=== PATIENT | male | born 1945 | race Caucasian/White ===

== ENCOUNTER 2022-03-15 10:32 | Emergency (ER) | payer MEDICARE, BC ==
[~2022-03-15] VITALS: Ht 177.8 cm; Wt 108.9 kg
[2022-03-15] MEDS ORDERED: Buspirone HCl15 MG PO (11:22)
[2022-03-15] MEDS ORDERED: ATOR10 PO (11:22)
[2022-03-15] MEDS ORDERED: AMLO5 PO (11:22)
[2022-03-15] MEDS ORDERED: ELIQUIS5 M2 PO (11:23)
[2022-03-15] MEDS ORDERED: DULO60 PO (11:23)
[2022-03-15] MEDS ORDERED: METO50ER PO (11:24)
[2022-03-15] MEDS ORDERED: FLUT1DIS5 INH (11:24)
[2022-03-15] MEDS ORDERED: ALPR.5 (11:25)
[2022-03-15] MEDS ORDERED: OMEP20ER PO (11:25)
[2022-03-15] MEDS ORDERED: TAMS.4ER PO (11:25)
[2022-03-15] MEDS ORDERED: CAPSAICIN60 G1 TOP (11:26)
[2022-03-15] MEDS ORDERED: FURO20 PO (11:26)
[2022-03-15] MEDS ORDERED: ACET500 PO (11:26)
[2022-03-15] MEDS ORDERED: LIDO700A20 TOP (11:27)
[2022-03-15] MEDS ORDERED: VITAMIN D325 MC3 PO (11:27)
[2022-03-15] MEDS ORDERED: DICLOFENAC SOD100 G1 (11:27)
[2022-03-15] MEDS ORDERED: FOLI1 PO (11:28)
[2022-03-15] MEDS ORDERED: MULVITA (11:28)
[2022-03-15] MEDS ORDERED: B-1100 M1 PO (11:28)
[2022-03-15] MEDS ORDERED: MAGNESIUM OXID500 MG PO (11:28)
[2022-03-15] MEDS ORDERED: EUCERIN ORIGIN250 ML (11:29)
[2022-03-15] MEDS ORDERED: HYDROCODONE-AC1 EA10 (11:30)
== END 2022-03-15 15:15 | disposition home or self-care (01) ==
LOC: ER 10:32
DX: T84.028A Dislocation of other internal joint prosthesis, initial encounter (principal); Z96.612 Presence of left artificial shoulder joint; Y79.2 Prosthetic and other implants, materials and accessory orthopedic devices associated with adverse incidents; Z88.8 Allergy status to other drugs, medicaments and biological substances; Z79.899 Other long term (current) drug therapy; Z79.1 Long term (current) use of non-steroidal anti-inflammatories (NSAID); Z96.643 Presence of artificial hip joint, bilateral
CPT/HCPCS: 73020; 73030; 76000; A9270; J1170; J1885; J2704; J7030

== ENCOUNTER 2022-05-19 15:10 | Emergency (ER) | payer MEDICARE, BC ==
[~2022-05-19] VITALS: Ht 177.8 cm; Wt 122.5 kg
[~2022-05-19 15:10] MED LIST: ACET500 PO; ALPR.5; AMLO5 PO; ATOR10 PO; B-1100 M1 PO; Buspirone HCl15 MG PO; CAPSAICIN60 G1 TOP; DICLOFENAC SOD100 G1; DULO60 PO; ELIQUIS5 M2 PO; EUCERIN ORIGIN250 ML; FLUT1DIS5 INH; FOLI1 PO; FURO20 PO; HYDROCODONE-AC1 EA10; LIDO700A20 TOP; MAGNESIUM OXID500 MG PO; METO50ER PO; MULVITA; OMEP20ER PO; TAMS.4ER PO; VITAMIN D325 MC3 PO
[2022-05-19 15:47] LABS: BASOPHILS ABSOLUTE AUTO 0.04 K/mm3 (0.00-0.23); BASOPHILS PERCENT AUTO 1 % (0-2); EOSINOPHILS ABSOLUTE AUTO 0.28 K/mm3 (0.00-0.68); EOSINOPHILS PERCENT AUTO 5 % (0-6); Hemoglobin 14.9 g/dL (13.5-17.5); IMMATURE GRAN ABSOLUTE AUTO 0.03 K/mm3 (0.00-0.10); IMMATURE GRAN PERCENT AUTO 1 % (0-1); LYMPHOCYTES ABSOLUTE AUTO 1.38 K/mm3 (0.84-5.20); LYMPHOCYTES PERCENT AUTO 27 % (21-46); MONOCYTES ABSOLUTE AUTO 0.92 K/mm3 (0.16-1.47); MONOCYTES PERCENT AUTO 18 % (4-13); Mean Corpuscular HGB 32.3 pg (26.0-34.0); Mean Corpuscular HGB Conc 34.7 g/dL (31.5-36.5); Mean Corpuscular Volume 93 fL (80-100); Mean Platelet Volume 9.6 fL (9.1-12.4); NEUTROPHILS ABSOLUTE AUTO 2.52 K/mm3 (1.96-9.15); NEUTROPHILS PERCENT AUTO 49 % (41-73); Platelet Count 155 K/mm3 (150-400); RDW Coefficient Variation 14.6 % (11.7-14.2); Red Blood Cell Count 4.62 M/mm3 (4.30-5.90); White Blood Cell Count 5.17 K/mm3 (4.00-11.30)
[2022-05-19 16:23] LABS: Albumin, Blood 3.8 g/dL (3.4-5.0); Albumin/Globulin Ratio 1.1 (0.8-1.8); Bilirubin, Total 1.2 mg/dL (0.1-1.0); Bun/Creatinine Ratio 12.4 (12.0-20.0); Calcium, Blood 8.8 mg/dL (8.5-10.1); Creatinine, Blood 1.05 mg/dL (0.60-1.20); Globulin, Blood 3.4 g/dL (2.2-4.0); Potassium, Blood 3.8 mmol/L (3.5-5.5); Total Protein, Blood 7.2 g/dL (6.4-8.2)
== END 2022-05-19 16:53 | disposition home or self-care (01) ==
LOC: ER 15:10
PROVIDERS: Emergency Medicine
DX: F10.929 Alcohol use, unspecified with intoxication, unspecified (principal); E80.6 Other disorders of bilirubin metabolism; Z88.8 Allergy status to other drugs, medicaments and biological substances; Z79.899 Other long term (current) drug therapy
CPT/HCPCS: 36415; 80053; 82947; 85025; G0480

== ENCOUNTER 2022-06-19 01:00 | Emergency (ER) | payer MEDICARE, BC ==
[~2022-06-19] VITALS: Ht 175.3 cm; Wt 113.4 kg
== END 2022-06-19 03:13 | disposition home or self-care (01) ==
LOC: ER 01:00
DX: L76.21 Postprocedural hemorrhage of skin and subcutaneous tissue following a dermatologic procedure (principal); I48.91 Unspecified atrial fibrillation; G62.9 Polyneuropathy, unspecified; G47.33 Obstructive sleep apnea (adult) (pediatric); Z79.01 Long term (current) use of anticoagulants; Z88.8 Allergy status to other drugs, medicaments and biological substances; Z79.899 Other long term (current) drug therapy; Z85.828 Personal history of other malignant neoplasm of skin
CPT/HCPCS: 99282

== ENCOUNTER → 2022-08-10 | Outpatient (CLI) | payer MEDICARE, BC | END | disposition home or self-care (01) | LOC: LAB SHORT 10:30 → LAB 10:30 | DX: L08.9 Local infection of the skin and subcutaneous tissue, unspecified (principal) | CPT/HCPCS: 87070; 87147; 87205 ==

== ENCOUNTER 2023-12-27 14:38 | Emergency (ER) | payer MEDICARE, BC ==
[~2023-12-27] VITALS: Ht 177.8 cm; Wt 103.0 kg
[2023-12-27] MEDS ORDERED: LORazepam 2 MG/ML 1ML Injection IV ONE (14:50)
[2023-12-27] MEDS ORDERED: NS 1,000 ML IV SCH (14:55)
[2023-12-27 16:49] LABS: BASOPHILS ABSOLUTE AUTO 0.03 K/mm3 (0.00-0.23); BASOPHILS PERCENT AUTO 0 % (0-2); EOSINOPHILS ABSOLUTE AUTO 0.09 K/mm3 (0.00-0.68); EOSINOPHILS PERCENT AUTO 1 % (0-6); Hematocrit 40.1 % (37.0-53.0); Hemoglobin 13.3 g/dL (13.5-17.5); IMMATURE GRAN ABSOLUTE AUTO 0.02 K/mm3 (0.00-0.10); IMMATURE GRAN PERCENT AUTO 0 % (0-1); LYMPHOCYTES ABSOLUTE AUTO 0.83 K/mm3 (0.84-5.20); LYMPHOCYTES PERCENT AUTO 12 % (21-46); MONOCYTES ABSOLUTE AUTO 1.07 K/mm3 (0.16-1.47); MONOCYTES PERCENT AUTO 16 % (4-13); Mean Corpuscular HGB 31.5 pg (26.0-34.0); Mean Corpuscular HGB Conc 33.2 g/dL (31.5-36.5); Mean Corpuscular Volume 95 fL (80-100); Mean Platelet Volume 9.9 fL (9.1-12.4); NEUTROPHILS ABSOLUTE AUTO 4.71 K/mm3 (1.96-9.15); NEUTROPHILS PERCENT AUTO 70 % (41-73); Platelet Count 143 K/mm3 (150-400); RDW Coefficient Variation 14.4 % (11.7-14.2); RDW Standard Deviation 49.4 fL (35.1-46.3); Red Blood Cell Count 4.22 M/mm3 (4.30-5.90); White Blood Cell Count 6.75 K/mm3 (4.00-11.30)
[2023-12-27 17:01] LABS: International Normalized Ratio 1.14; Prothrombin Time Results 12.1 Sec (9.7-11.5)
[2023-12-27 17:10] LABS: Magnesium, Blood 1.5 mg/dL (1.6-2.4)
[2023-12-27 18:05] LABS: Alanine Aminotransfer (ALT/SGP 16 U/L (12-78); Albumin, Blood 3.2 g/dL (3.4-5.0); Alk Phos 113 U/L (50-136); Anion Gap 11 mmol/L (3-11); Aspartate Aminotrans (AST/SGOT 32 U/L (12-37); Bilirubin, Total 2.1 mg/dL (0.1-1.0); Blood Urea Nitrogen 9 mg/dL (8-24); Bun/Creatinine Ratio 9.8 (12.0-20.0); CO2, Blood 27 mmol/L (21-32); Calcium, Blood 8.7 mg/dL (8.5-10.1); Chloride, Blood 102 mmol/L (98-108); Creatinine, Blood 0.92 mg/dL (0.60-1.20); Ethanol (Alcohol), Blood, Med <3 mg/dL; Globulin, Blood 3.2 g/dL (2.2-4.0); Glomerular Filtration Rate 85 (60-); Glucose, Blood 121 mg/dL (70-99); Potassium, Blood 3.6 mmol/L (3.5-5.5); Sodium, Blood 136 mmol/L (136-145); Total Protein, Blood 6.4 g/dL (6.4-8.2)
[2023-12-27] MEDS ORDERED: Magnesium Sulf 2 GM/Water 50ML 50 ML IV ONE (18:15)
[2023-12-27] MEDS ORDERED: ONDA4ODT MM (18:17)
[2023-12-27] MEDS ORDERED: CHLO10 PO (18:17)
[2023-12-27 19:16] VITALS: BP 154/127
== END 2023-12-27 20:15 | disposition home or self-care (01) ==
LOC: ER 14:38
PROVIDERS: Emergency Medicine
DX: F10.239 Alcohol dependence with withdrawal, unspecified (principal); E83.42 Hypomagnesemia; I48.91 Unspecified atrial fibrillation; G47.33 Obstructive sleep apnea (adult) (pediatric)
CPT/HCPCS: 80053; 80320; 83605; 83690; 83735; 85025; 85610; 93005; 93010; 96361; 96365; 96375; 99285-25; J2060; J3475; J7030

== ENCOUNTER → 2024-04-07 | Outpatient (CLI) | payer MEDICARE, BC ==
[~2024-04-07] MED LIST changes: +CHLO10 PO; +ONDA4ODT MM
[2024-04-07 18:41] LABS: Bun/Creatinine Ratio 9.9 (12.0-20.0); Calcium, Blood 9.5 mg/dL (8.5-10.1); Creatinine, Blood 1.01 mg/dL (0.60-1.20); Potassium, Blood 3.7 mmol/L (3.5-5.5)
== END ==
LOC: LAB SHORT 15:51 → LAB 15:51
PROVIDERS: Family Medicine
DX: I12.9 Hypertensive chronic kidney disease with stage 1 through stage 4 chronic kidney disease, or unspecified chronic kidney disease (principal); N18.9 Chronic kidney disease, unspecified
CPT/HCPCS: 80048

== ENCOUNTER → 2024-07-04 | Outpatient (CLI) | payer MEDICARE, BC ==
[2024-07-04 16:55] LABS: BASOPHILS ABSOLUTE AUTO 0.04 K/mm3 (0.00-0.23); BASOPHILS PERCENT AUTO 1 % (0-2); EOSINOPHILS ABSOLUTE AUTO 0.19 K/mm3 (0.00-0.68); EOSINOPHILS PERCENT AUTO 3 % (0-6); Hematocrit 39.4 % (37.0-53.0); Hemoglobin 13.6 g/dL (13.5-17.5); IMMATURE GRAN ABSOLUTE AUTO 0.02 K/mm3 (0.00-0.10); IMMATURE GRAN PERCENT AUTO 0 % (0-1); LYMPHOCYTES ABSOLUTE AUTO 1.15 K/mm3 (0.84-5.20); LYMPHOCYTES PERCENT AUTO 18 % (21-46); MONOCYTES ABSOLUTE AUTO 1.32 K/mm3 (0.16-1.47); MONOCYTES PERCENT AUTO 20 % (4-13); Mean Corpuscular HGB 29.4 pg (26.0-34.0); Mean Corpuscular HGB Conc 34.5 g/dL (31.5-36.5); Mean Corpuscular Volume 85 fL (80-100); Mean Platelet Volume 9.7 fL (9.1-12.4); NEUTROPHILS ABSOLUTE AUTO 3.85 K/mm3 (1.96-9.15); NEUTROPHILS PERCENT AUTO 59 % (41-73); Platelet Count 170 K/mm3 (150-400); RDW Coefficient Variation 17.1 % (11.7-14.2); RDW Standard Deviation 52.6 fL (35.1-46.3); Red Blood Cell Count 4.63 M/mm3 (4.30-5.90); White Blood Cell Count 6.57 K/mm3 (4.00-11.30)
[2024-07-04 17:03] LABS: Albumin, Blood 3.9 g/dL (3.4-5.0); Albumin/Globulin Ratio 1.2 (0.8-1.8); Bilirubin, Total 3.3 mg/dL (0.1-1.0); Bun/Creatinine Ratio 6.8 (12.0-20.0); Calcium, Blood 9.1 mg/dL (8.5-10.1); Creatinine, Blood 1.17 mg/dL (0.60-1.20); Globulin, Blood 3.3 g/dL (2.2-4.0); Potassium, Blood 3.2 mmol/L (3.5-5.5); Total Protein, Blood 7.2 g/dL (6.4-8.2)
== END | disposition home or self-care (01) ==
LOC: LAB 16:45 → LAB SHORT 16:45
PROVIDERS: Family Medicine
DX: R17 Unspecified jaundice (principal)
CPT/HCPCS: 80053; 85025

== ENCOUNTER 2024-07-05 13:17 | Emergency (ER) | payer BC, MEDICARE ==
[~2024-07-05] VITALS: Ht 177.8 cm; Wt 104.3 kg
[2024-07-05 13:53] LABS: BASOPHILS ABSOLUTE AUTO 0.04 K/mm3 (0.00-0.23); BASOPHILS PERCENT AUTO 1 % (0-2); EOSINOPHILS ABSOLUTE AUTO 0.13 K/mm3 (0.00-0.68); EOSINOPHILS PERCENT AUTO 2 % (0-6); Hematocrit 40.2 % (37.0-53.0); Hemoglobin 13.8 g/dL (13.5-17.5); IMMATURE GRAN ABSOLUTE AUTO 0.02 K/mm3 (0.00-0.10); IMMATURE GRAN PERCENT AUTO 0 % (0-1); LYMPHOCYTES ABSOLUTE AUTO 0.64 K/mm3 (0.84-5.20); LYMPHOCYTES PERCENT AUTO 9 % (21-46); MONOCYTES ABSOLUTE AUTO 1.23 K/mm3 (0.16-1.47); MONOCYTES PERCENT AUTO 17 % (4-13); Mean Corpuscular HGB 30.1 pg (26.0-34.0); Mean Corpuscular HGB Conc 34.3 g/dL (31.5-36.5); Mean Corpuscular Volume 88 fL (80-100); Mean Platelet Volume 9.6 fL (9.1-12.4); NEUTROPHILS ABSOLUTE AUTO 5.11 K/mm3 (1.96-9.15); NEUTROPHILS PERCENT AUTO 71 % (41-73); Platelet Count 181 K/mm3 (150-400); RDW Standard Deviation 54.4 fL (35.1-46.3); Red Blood Cell Count 4.59 M/mm3 (4.30-5.90); White Blood Cell Count 7.17 K/mm3 (4.00-11.30)
[2024-07-05 14:04] LABS: Albumin, Blood 3.6 g/dL (3.4-5.0); Albumin/Globulin Ratio 1.1 (0.8-1.8); Bilirubin, Total 2.7 mg/dL (0.1-1.0); Bun/Creatinine Ratio 10.4 (12.0-20.0); Calcium, Blood 8.9 mg/dL (8.5-10.1); Creatinine, Blood 1.06 mg/dL (0.60-1.20); Globulin, Blood 3.2 g/dL (2.2-4.0); Potassium, Blood 3.3 mmol/L (3.5-5.5); Total Protein, Blood 6.8 g/dL (6.4-8.2)
[2024-07-05 16:24] VITALS: BP 134/85
== END 2024-07-05 16:26 | disposition home or self-care (01) ==
LOC: ER 13:17
PROVIDERS: Emergency Medicine
DX: S09.90XA Unspecified injury of head, initial encounter (principal); E87.1 Hypo-osmolality and hyponatremia; R53.1 Weakness; I48.91 Unspecified atrial fibrillation; Z79.01 Long term (current) use of anticoagulants; W18.30XA Fall on same level, unspecified, initial encounter
CPT/HCPCS: 70450; 71045; 80053; 82140; 83880; 84484; 85025; 93005; 93010; 99285-25

== ENCOUNTER 2024-09-11 08:06 | Emergency (ER) | payer MEDICARE, BC ==
[~2024-09-11] VITALS: Ht 177.8 cm; Wt 99.8 kg
[2024-09-11 08:40] LABS: BASOPHILS ABSOLUTE AUTO 0.05 K/mm3 (0.00-0.23); BASOPHILS PERCENT AUTO 1 % (0-2); EOSINOPHILS PERCENT AUTO 3 % (0-6); Hematocrit 40.3 % (37.0-53.0); Hemoglobin 13.1 g/dL (13.5-17.5); IMMATURE GRAN ABSOLUTE AUTO 0.02 K/mm3 (0.00-0.10); IMMATURE GRAN PERCENT AUTO 0 % (0-1); LYMPHOCYTES ABSOLUTE AUTO 0.84 K/mm3 (0.84-5.20); LYMPHOCYTES PERCENT AUTO 11 % (21-46); MONOCYTES ABSOLUTE AUTO 1.15 K/mm3 (0.16-1.47); MONOCYTES PERCENT AUTO 15 % (4-13); Mean Corpuscular HGB 28.7 pg (26.0-34.0); Mean Corpuscular HGB Conc 32.5 g/dL (31.5-36.5); Mean Corpuscular Volume 88 fL (80-100); NEUTROPHILS ABSOLUTE AUTO 5.24 K/mm3 (1.96-9.15); NEUTROPHILS PERCENT AUTO 70 % (41-73); Platelet Count 175 K/mm3 (150-400); RDW Coefficient Variation 13.4 % (11.7-14.2); RDW Standard Deviation 43.5 fL (35.1-46.3); Red Blood Cell Count 4.57 M/mm3 (4.30-5.90)
[2024-09-11] MEDS ORDERED: NS 1,000 ML IV SCH (08:55)
[2024-09-11 09:48] LABS: Source, Urine Clean Catch
[2024-09-11 09:55] LABS: Appearance, Urine Cloudy (Clear); Bilirubin, Urine Neg (Neg); Blood, Urine 4+ (Neg); Color, Urine Yellow (P-Yellow); Glucose Qualitative, Urine Neg (Neg); Ketones, Urine Neg (Neg); Leukocyte Esterase, Urine 3+ (Neg); Nitrite, Urine Neg (Neg); Protein, Urine 2+ (Neg); Urobilinogen, Urine NORM (Normal)
[2024-09-11 10:12] LABS: White Blood Cells, Urine 50-100 /hpf (0-5)
[2024-09-11 10:13] LABS: Bacteria Many /hpf; Squamous Epithelial Cells Not Seen /hpf (Few)
[2024-09-11 10:14] LABS: U Amphetamine Screen Not Detected; U Barbituate Screen Not Detected; U Benzodiazapine Screen Not Detected; U Cocaine Screen Not Detected; U Methadone Screen Not Detected; U Methamphetamine Screen Not Detected; U Opiates Screen Not Detected
[2024-09-11 10:15] LABS: U Buprenorphine Screen Not Detected; U Cannabinoids Screen Not Detected; U Oxycodone Screen Not Detected; U Phencyclidine Screen Not Detected
[2024-09-11] MEDS ORDERED: Metoprolol Succinate 50 MG TABCR PO ONE (13:00)
[2024-09-11] MEDS ORDERED: AmLODIPine Besylate 5 MG Tab PO ONE (13:00)
[2024-09-11 14:27] LABS: Calcium, Ionized (POC) 1.13 mmol/L (1.10-1.46); Chloride (POC) 107 mmol/L (98-108); Glucose (ISTAT POC) 89 mg/dL (70-99); Hemoglobin (POC) 13.3 g/dL (13.5-17.5); Potassium (POC) 3.3 mmol/L (3.5-5.5); Sodium (POC) 140 mmol/L (135-148); Total CO2 (POC) 20 mmol/L (21-32)
[2024-09-11] MEDS ORDERED: Metoprolol Tartrate 1 MG/ML 5 ML VIAL IV PRN (15:35)
[2024-09-11 16:18] LABS: Albumin, Blood 3.3 g/dL (3.4-5.0); Albumin/Globulin Ratio 0.9 (0.8-1.8); Bilirubin, Total 1.6 mg/dL (0.1-1.0); Bun/Creatinine Ratio 12.9 (12.0-20.0); Creatinine, Blood 1.01 mg/dL (0.60-1.20); Globulin, Blood 3.5 g/dL (2.2-4.0); Total Protein, Blood 6.8 g/dL (6.4-8.2)
[2024-09-11] MEDS ORDERED: Docusate Sodium 100 MG Cap PO SCH (16:45)
[2024-09-11] MEDS ORDERED: HyDROXyzine HCl 25 MG Tab PO ONE (16:50)
[2024-09-11] MEDS ORDERED: CEFP200 PO (17:29)
[2024-09-11] MEDS ORDERED: NYSTRIT TOP (17:29)
[2024-09-11] MEDS ORDERED: Potassium Chloride 20 MEQ TabCR PO ONE (17:40)
[2024-09-11] MEDS ORDERED: TraMADol HCl 50 MG Tab PO SCH (18:00)
[2024-09-11] MEDS ORDERED: Melatonin 1 MG Tablet PO SCH (21:00)
[2024-09-11] MEDS ORDERED: GuaiFENesin 600 MG TabCR PO SCH (21:00)
[2024-09-11] MEDS ORDERED: Gabapentin 300 MG Cap PO SCH (21:00)
[2024-09-11] MEDS ORDERED: Atorvastatin 10 MG Tab PO SCH (21:00)
[2024-09-11] MEDS ORDERED: BusPIRone HCl 5 MG Tab PO SCH (21:00)
[2024-09-11] MEDS ORDERED: Metoprolol Tartrate 25 MG Tab PO SCH ×2 (21:00)
[2024-09-11] MEDS ORDERED: Acetaminophen 325 MG TABLET PO SCH (21:00)
[2024-09-11] MEDS ORDERED: DULoxetine HCL 30 MG Cap DR PO SCH (21:00)
[2024-09-11] MEDS ORDERED: Cefpodoxime Proxetil 200 MG Tab PO SCH (21:00)
[2024-09-11] MEDS ORDERED: TraZODone HCl 50 MG Tab PO SCH (21:00)
[2024-09-11] MEDS ORDERED: Apixaban 5 MG Tab PO SCH (21:00)
[2024-09-12] MEDS ORDERED: Miconazole Nitrate 2% 85 GM PWD TOP ONE (08:45)
[2024-09-12] MEDS ORDERED: Tamsulosin HCl 0.4 MG Cap PO SCH (09:00)
[2024-09-12] MEDS ORDERED: Losartan Potassium 25 MG Tab PO SCH (09:00)
[2024-09-12] MEDS ORDERED: Folic Acid 1 MG TAB PO SCH (09:00)
[2024-09-12 10:08] VITALS: BP 144/113
[2024-09-12] MEDS ORDERED: Folic Acid 400 MCG TAB PO SCH (10:15)
== END 2024-09-12 11:34 | disposition home or self-care (01) ==
LOC: ER 08:06
PROVIDERS: Emergency Medicine; Physician Assistant
DX: R53.1 Weakness (principal); N39.0 Urinary tract infection, site not specified; B37.2 Candidiasis of skin and nail; I48.91 Unspecified atrial fibrillation; G47.33 Obstructive sleep apnea (adult) (pediatric); Z79.899 Other long term (current) drug therapy; Z88.8 Allergy status to other drugs, medicaments and biological substances
CPT/HCPCS: 70450; 71046; 80047; 80053; 80320; 81001; 85014; 85025; A9270; J7030